=== PATIENT | male | born 1960 | race Caucasian/White ===

== ENCOUNTER 2018-11-18 15:12 | Outpatient (CLI) | payer BC ==
--- NOTE | 2018-11-18 20:46 | RAD ---
LEFT KNEE TWO VIEWS: 11/18/18 No prior studies were available for comparison. A screw and staple are seen in the anterior part of t he proximal tibia from a prior operative procedure. No acute fracture or joint effusion was seen. Th e joint space is normal. There is a bony density along the inferior aspect of the patella at its bernice cular surface but appears to be a fragment that has . It does not appear acute, however, IMPRESSION: No acute bony findings. Old inferior patellar avulsion that probably involves the articular surface o f the bone. POS: HOME
== END 2018-11-18 15:13 | disposition home or self-care (01) ==
LOC: BURRAD 15:12
PROVIDERS: ATTEND Nurse Practitioner Family
DX: M25.562 Pain in left knee (principal); Z98.890 Other specified postprocedural states